=== PATIENT | male | born 1990 | race Two or more races ===

== ENCOUNTER 2023-12-29 09:20 | Emergency (ER) | payer OTHER ==
[~2023-12-29] VITALS: Ht 190.5 cm; Wt 127.0 kg
[2023-12-29 09:55] VITALS: BP 150/88; TEMP 98.4; O2SAT 99
== END 2023-12-29 09:56 | disposition home or self-care (01) ==
LOC: ER 09:20
DX: R07.9 Chest pain, unspecified (principal)